=== PATIENT | male | born 1985 | race African-American/Black ===

== ENCOUNTER 2018-09-11 06:21 | Emergency (ER) | payer BC ==
[~2018-09-11] VITALS: Ht 182.9 cm; Wt 109.0 kg
[2018-09-11 06:39] VITALS: BP 148/77
[2018-09-11] MEDS ORDERED: LIDOCAINE HCL/PF 1% 10 MG/ML 5ML VIAL IJ ONE (09:45)
== END 2018-09-11 10:07 | disposition home or self-care (01) ==
LOC: ER 06:21
DX: L72.3 Sebaceous cyst (principal)
CPT/HCPCS: 10060; 87070; 87077; 87186; 87205; 99283; J3490